=== PATIENT | female | born 1955 | race Caucasian/White ===

== ENCOUNTER 2019-08-31 13:26 | Emergency (ER) | payer BC ==
[~2019-08-31] VITALS: Ht 162.6 cm; Wt 75.0 kg
[2019-08-31 13:34] VITALS: TEMP 98.7
[2019-08-31] MEDS ORDERED: CEPHALEXIN500 M1 PO (14:35)
[2019-08-31] MEDS ORDERED: STATIN (14:36)
[2019-08-31] MEDS ORDERED: [UNRECOGNIZED DRUG - REMARK] (14:37)
[2019-08-31 14:46] VITALS: BP 123/80; PULSE 77
== END 2019-08-31 14:48 | disposition home or self-care (01) ==
LOC: COL.ER 13:26
DX: S81.811A Laceration without foreign body, right lower leg, initial encounter (principal); W22.8XXA Striking against or struck by other objects, initial encounter; Y92.015 Private garage of single-family (private) house as the place of occurrence of the external cause

== ENCOUNTER → 2019-09-11 | Outpatient (CLI) | payer BC ==
[~2019-09-11] MED LIST: CEPHALEXIN500 M1 PO; STATIN; [UNRECOGNIZED DRUG - REMARK]
== END ==
LOC: COL.ER 13:59
DX: Z48.02 Encounter for removal of sutures (principal)